=== PATIENT | female | born 1950 | race Caucasian/White ===

== ENCOUNTER → 2017-12-20 | Outpatient (CLI) | payer MEDICARE | END | disposition home or self-care (01) | LOC: PCVCIMAG 15:18 | DX: I35.0 Nonrheumatic aortic (valve) stenosis (principal); R07.89 Other chest pain; Z82.49 Family history of ischemic heart disease and other diseases of the circulatory system | CPT/HCPCS: 93306 ==

== ENCOUNTER → 2018-01-03 | Outpatient (CLI) | payer MEDICARE ==
[~2018-01-03] MED LIST: REGADENOSON 0.4 MG/5 ML DISP.SYRIN. IV ONE
--- NOTE | 2018-01-08 16:40 | PCVCIMAG ---
APPROVED REPORT Imaging Protocol: Rest Tc-99m/Stress Tc-99m 1 day Study performed: 01/03/2018 08:49:34 Indication: Chest pain, Dyspnea Patient Location: Out-Patient Stress Nurse: Vera Godoy RN, Milana Villalobos RN [place] Tech:JUAN Orosco Ht: 5 ft 4 in Wt: 130 lbs BSA: 1.63 m2 HR: 75 bpm BP: 158/60 mmHg BMI: 22.3 Medical History Medications: Zetia, crestor, synthroid, myrbetriq Allergies: Shellfish, Codeine, Sulfa Cardiac Risk Factors: Age, Hyperlipidemia, Tobacco History (Current/Recent) Pretest Chest Pain Characteristics: No chest pain Exercise History: Sedentary Physical Disabilities: MS/uses wheelchair Resting Data Rest SPECT myocardial perfusion imaging was performed in supine position 45 minutes following the intravenous injection of 10.2 mCi of Tc-99m Sestamibi. Time of rest injection: 814 Date: 01/03/2018 Administration Route: IV Administration Site: Right AC Pharmacologic Stress Pharmacologic stress test was performed by injecting Regadenoson 0.4 mg IV push over 10-15 seconds immediately followed by the intravenous injection of 34.0 mCi of Tc-99m Sestamibi. Time of stress injection: 919 Date: 01/03/2018 Administration Route: IV Administration Site: Right AC Gated Stress SPECT was performed 45 minutes after stress injection. The images were gated to evaluate regional wall motion and calculate left ventricular ejection fraction. Stress Test Details Stress Test: Pharmacologic stress testing performed using 0.4 mg of regadenoson per 5 mL given IV over 10 seconds. Reason for pharmacologic stress test: MS/Wheelchair. HRMax Heart Rate (APMHR): 151 bpm Resting HR: 75 bpmTarget HR (85% APMHR): 128 bpm Max HR Achieved: 106 bpm % of APMHR: 70 Recovery HR: 99 bpm BP Resting BP: 158/60 mmHg Recovery BP: 147/73 mmHg ECG Resting ECG: Sinus Rhythm Stress ECG: Sinus Tachycardia Recovery ECG: Sinus Rhythm Clinical Reason for Termination: Completed protocol Stress Symptoms: Chest pain, Dyspnea, Lightheaded, Fatigue Exercise duration: 0 min 55 sec Symptoms resolved with caffeine. Stress ECG Conclusion 1. ADEQUATE RESPONSE TO IV LEXISCAN 2. INADEQUATE HEART RATE FOR ECG DIAGNOSIS Study Data Post stress, the left ventricular ejection was 88%.. SSS: 0 SRS: 0 SDS: 0 TID = 0.96. Perfusion There is a small area of moderately reduced uptake in the apical segment of the LEFT VENTRICULAR wall which is seen on the stress images as well as the resting images. This area thickens and moves normally and is most consistent with attenuation artifact. Wall Motion Normal left ventricular wall motion. Nuclear Conclusion ECG Findings: non-diagnostic Clinical Findings: negative for ischemia Nuclear Findings: negative for ischemia Exercise Capacity: not assessed Left Ventricular Function: normal 1. LOW RISK STUDY Interpreted by: Cosme Corado MD Electronically Approved: 01/08/2018 16:39:42 <Conclusion> 1. ADEQUATE RESPONSE TO IV LEXISCAN 2. INADEQUATE HEART RATE FOR ECG DIAGNOSIS
== END | disposition home or self-care (01) ==
LOC: PCVCIMAG 10:19
PROVIDERS: ATTEND Internal Medicine
DX: R07.9 Chest pain, unspecified (principal); R06.09 Other forms of dyspnea; R53.83 Other fatigue; E78.5 Hyperlipidemia, unspecified; Z87.891 Personal history of nicotine dependence
CPT/HCPCS: 78452; 93017; A9500; J2785

== ENCOUNTER → 2019-05-29 | Outpatient (CLI) | payer MEDICARE ==
--- NOTE | 2019-05-29 22:40 | PCVCIMAG ---
APPROVED REPORT Study performed: 05/29/2019 15:47:46 EXAM: Comprehensive 2D, Doppler, and color-flow Echocardiogram Patient Location: Echo lab Room #: 3Status: routine BSA: 1.66 HR: 69 bpmBP: 132/84 mmHg Rhythm: NSR Other Information Study Quality: Adequate Risk Factors: Cardiac Risk Factors: Hyperlipidemia, Smoking Indications Palpitations 2D Dimensions IVSd: 10.38 (7-11mm)LVOT Diam: 20.00 (18-24mm) LVDd: 38.57 mm PWd: 10.69 (7-11mm)Ascending Ao: 35.00 (22-36mm) LVDs: 24.95 (25-40mm) Left Atrium: 33.04 (27-40mm) Aortic Root: 27.22 mm LV Single Plane 4CH: 57.45 % LV Single Plane 2CH: 56.58 % Biplane EF: 56.3 % Volumes Left Atrial Volume (Systole) Single Plane 4CH: 25.40 mLSingle Plane 2CH: 44.18 mL LA ESV Index: 22.00 mL/m2 Aortic Valve AoV Peak Kamaljit.: 1.48 m/s AO Peak Gr.: 8.80 mmHgLVOT Max P.23 mmHg LVOT Max V: 1.03 m/s MICKY Vmax: 2.23 cm2 Mitral Valve E/A Ratio: 0.8 MV Decel. Time: 262.17 ms MV E Max Kamaljit.: 0.88 m/s MV A Kamaljit.: 1.08 m/s IVRT: 69.20 ms TDI E/Lateral E': 9.78E/Medial E': 11.00 Medial E' Kamaljit.: 0.08 m/s Lateral E' Kamaljit.: 0.09 m/s Pulmonary Valve PV Peak Kamaljit.: 0.88 m/sPV Peak Gr.: 3.10 mmHg Pulmonary Vein P Vein S: 0.65 m/sP Vein A: 0.38 m/s P Vein D: 0.36 m/sP Vein A Dur.: 114.2 msec P Vein S/D Ratio: 1.81 Tricuspid Valve TR Peak Kamaljit.: 1.82 m/sRAP Estimate: 7.00 mmHg TR Peak Gr.: 13.28 mmHg PA Pressure: 20.00 mmHg Left Ventricle The left ventricle is normal size. There is normal LV segmental wall motion. There is normal left ventricular wall thickness. Left ventricular systolic function is normal. The left ventricular ejection fraction is within the normal range. LVEF is 55-60%. Mild diastolic dysfunction is present (impaired relaxation pattern). Right Ventricle The right ventricle is normal size. The right ventricular systolic function is normal. Atria The left atrium size is normal. The right atrium size is normal. Aortic Valve The aortic valve is normal in structure. No aortic regurgitation is present. There is no aortic valvular stenosis. Mitral Valve The mitral valve is normal in structure. There is no mitral valve regurgitation noted. No evidence of mitral valve stenosis. Tricuspid Valve The tricuspid valve is normal in structure. Trace tricuspid regurgitation. Pulmonary artery pressure is 20 mmHg. Pulmonic Valve The pulmonary valve is normal in structure. There is no pulmonic valvular regurgitation. Great Vessels The aortic root is normal in size. The ascending aorta is normal in size. IVC is normal in size and collapses >50% with inspiration. Pericardium There is no pericardial effusion. <Conclusion> The left ventricle is normal size. LVEF is 55-60%. The aortic valve is normal in structure. The mitral valve is normal in structure. The tricuspid valve is normal in structure. Trace tricuspid regurgitation. Pulmonary artery pressure is 20 mmHg. There is no pericardial effusion.
== END | disposition home or self-care (01) ==
LOC: PCVCIMAG 15:43
PROVIDERS: ATTEND Internal Medicine
DX: R00.2 Palpitations (principal); E78.5 Hyperlipidemia, unspecified; Z72.0 Tobacco use; Z91.013 Allergy to seafood
CPT/HCPCS: 93306